=== PATIENT | female | born 1970 | race Caucasian/White ===

== ENCOUNTER → 2021-03-11 | Outpatient (CLI) | payer OTHER ==
[~2021-03-11] MED LIST: DICLOFENAC; DULO30 PO; OXYACE5T PO
[2021-03-11 12:57] LABS: BASOPHILS ABSOLUTE AUTO 0.04 K/mm3 (0.00-0.23); BASOPHILS PERCENT AUTO 1 % (0-2); EOSINOPHILS PERCENT AUTO 2 % (0-6); Hematocrit 44.3 % (33.0-51.0); Hemoglobin 14.1 g/dL (11.5-16.0); IMMATURE GRAN ABSOLUTE AUTO 0.02 K/mm3 (0.00-0.10); IMMATURE GRAN PERCENT AUTO 0 % (0-1); LYMPHOCYTES ABSOLUTE AUTO 3.36 K/mm3 (0.84-5.20); LYMPHOCYTES PERCENT AUTO 38 % (21-46); MONOCYTES ABSOLUTE AUTO 0.54 K/mm3 (0.16-1.47); MONOCYTES PERCENT AUTO 6 % (4-13); Mean Corpuscular HGB 27.7 pg (26.0-34.0); Mean Corpuscular HGB Conc 31.8 g/dL (31.5-36.5); Mean Corpuscular Volume 87 fL (80-100); Mean Platelet Volume 11.6 fL (9.1-12.4); NEUTROPHILS ABSOLUTE AUTO 4.64 K/mm3 (1.96-9.15); NEUTROPHILS PERCENT AUTO 53 % (41-73); Platelet Count 319 K/mm3 (150-400); RDW Coefficient Variation 14.6 % (11.7-14.2); RDW Standard Deviation 46.8 fL (35.1-46.3); Red Blood Cell Count 5.09 M/mm3 (3.80-5.20)
[2021-03-11 13:12] LABS: Alanine Aminotransfer (ALT/SGP 35 U/L (12-78); Albumin, Blood 3.8 g/dL (3.4-5.0); Albumin/Globulin Ratio 0.9 (0.8-1.8); Alk Phos 97 U/L (50-136); Anion Gap 4 mmol/L (6-16); Aspartate Aminotrans (AST/SGOT 20 U/L (12-37); Bilirubin, Total 0.2 mg/dL (0.1-1.0); Blood Urea Nitrogen 21 mg/dL (8-24); Bun/Creatinine Ratio 25.1 (12.0-20.0); CO2, Blood 26 mmol/L (21-32); Calcium, Blood 9.1 mg/dL (8.5-10.1); Chloride, Blood 107 mmol/L (98-108); Creatinine, Blood 0.84 mg/dL (0.40-1.00); Globulin, Blood 4.2 g/dL (2.2-4.0); Glomerular Filtration Rate >60 (60-); Glucose, Blood 114 mg/dL (70-99); Potassium, Blood 3.8 mmol/L (3.5-5.5); Sodium, Blood 137 mmol/L (136-145)
== END ==
LOC: LAB SHORT 11:55
PROVIDERS: Family Medicine
DX: J45.20 Mild intermittent asthma, uncomplicated (principal)
CPT/HCPCS: 80053; 84443; 85025; 85379

== ENCOUNTER 2021-09-07 19:19 | Emergency (ER) | payer OTHER ==
[~2021-09-07] VITALS: Ht 157.5 cm; Wt 81.7 kg
[2021-09-07] MEDS ORDERED: IBUP600 PO (22:06)
== END 2021-09-08 00:03 | disposition home or self-care (01) ==
LOC: ER 19:19
DX: T21.02XA Burn of unspecified degree of abdominal wall, initial encounter (principal); T20.00XA Burn of unspecified degree of head, face, and neck, unspecified site, initial encounter; T22.00XA Burn of unspecified degree of shoulder and upper limb, except wrist and hand, unspecified site, initial encounter; I10 Essential (primary) hypertension; M19.90 Unspecified osteoarthritis, unspecified site; F32.9 Major depressive disorder, single episode, unspecified; Z88.0 Allergy status to penicillin; Z88.2 Allergy status to sulfonamides; Z88.8 Allergy status to other drugs, medicaments and biological substances; Z79.899 Other long term (current) drug therapy; V49.9XXA Car occupant (driver) (passenger) injured in unspecified traffic accident, initial encounter
CPT/HCPCS: 74176; 96374; 96375; 99284-25; J1885; J2270; J2405

== ENCOUNTER → 2022-04-18 | Outpatient (CLI) | payer OTHER ==
[~2022-04-18] MED LIST changes: +IBUP600 PO
== END | disposition home or self-care (01) ==
LOC: LAB SHORT 11:08 → PLD 11:08
DX: L57.0 Actinic keratosis (principal)
CPT/HCPCS: 88305

== ENCOUNTER 2023-12-11 09:24 | Day surgery (SDC) | payer BC ==
[~2023-12-11] VITALS: Ht 157.5 cm; Wt 90.5 kg
[2023-12-11] MEDS ORDERED: CELE200 (10:07)
[2023-12-11] MEDS ORDERED: AMLO5 (10:08)
[2023-12-11] MEDS ORDERED: OMEP20ER (10:08)
[2023-12-11] MEDS ORDERED: ASTEPRO AL205.5 MCG/ (10:09)
[2023-12-11] MEDS ORDERED: RIZATRIPTAN10 MG (10:09)
[2023-12-11] MEDS ORDERED: TRAM50 (10:09)
[2023-12-11] MEDS ORDERED: FLUTICASONE-SA1 EAC1 (10:10)
[2023-12-11] MEDS ORDERED: XYZAL5 MG (10:10)
[2023-12-11] MEDS ORDERED: VITAMIN B12500 MCG (10:11)
[2023-12-11] MEDS ORDERED: VITAMIN D5000 UNIT (10:11)
[2023-12-11] MEDS ORDERED: ZINC15 (10:11)
[2023-12-11] MEDS ORDERED: [UNRECOGNIZED DRUG - CODE] (10:12)
[2023-12-11] MEDS ORDERED: MAGNESIUM MALATE (10:12)
[2023-12-11] MEDS ORDERED: Colace100 MG (10:13)
[2023-12-11 12:44] VITALS: BP 151/96
== END 2023-12-11 12:45 | disposition home or self-care (01) ==
LOC: ORSCSDS 09:24
PROVIDERS: Internal Medicine Gastroenterology
PROC: 0DB78ZX Excision of Stomach, Pylorus, Via Natural or Artificial Opening Endoscopic, Diagnostic (ICD-10-PCS; principal; 2023-12-11 11:00)
PROC: 0DBL8ZX Excision of Transverse Colon, Via Natural or Artificial Opening Endoscopic, Diagnostic (ICD-10-PCS; principal; 2023-12-11 11:00)
PROC: 0DB98ZX Excision of Duodenum, Via Natural or Artificial Opening Endoscopic, Diagnostic (ICD-10-PCS; principal; 2023-12-11 11:00)
PROC: 0D757ZZ Dilation of Esophagus, Via Natural or Artificial Opening (ICD-10-PCS; principal; 2023-12-11 11:00)
PROC: 0DB58ZX Excision of Esophagus, Via Natural or Artificial Opening Endoscopic, Diagnostic (ICD-10-PCS; principal; 2023-12-11 11:00)
PROC: 0DBN8ZX Excision of Sigmoid Colon, Via Natural or Artificial Opening Endoscopic, Diagnostic (ICD-10-PCS; principal; 2023-12-11 11:00)
DX: R13.10 Dysphagia, unspecified (principal); K21.9 Gastro-esophageal reflux disease without esophagitis; Z12.11 Encounter for screening for malignant neoplasm of colon; D12.5 Benign neoplasm of sigmoid colon; K63.5 Polyp of colon; D12.3 Benign neoplasm of transverse colon; I10 Essential (primary) hypertension; G47.33 Obstructive sleep apnea (adult) (pediatric); M79.7 Fibromyalgia; Z79.899 Other long term (current) drug therapy; Z68.36 Body mass index [BMI] 36.0-36.9, adult
CPT/HCPCS: 88305; 88342; J2001; J2704; J7120

== ENCOUNTER 2025-10-08 07:37 | Day surgery (SDC) | payer OTHER ==
[~2025-10-08] VITALS: Ht 157.5 cm; Wt 94.5 kg
[~2025-10-08 07:37] MED LIST changes: +AMLO5; +ASTEPRO AL205.5 MCG/; +Bupivacaine 0.5% W/EPI 1:200000 SDV 30 ML Vial ONE; +CELE200; +Colace100 MG; +FLUTICASONE-SA1 EAC1; +MAGNESIUM MALATE; +OMEP20ER; +RIZATRIPTAN10 MG; +TRAM50; +VITAMIN B12500 MCG; +VITAMIN D5000 UNIT; +XYZAL5 MG; +ZINC15; +[UNRECOGNIZED DRUG - CODE]
[2025-10-08] MEDS ORDERED: OMEP20ER PO (08:33)
[2025-10-08] MEDS ORDERED: Cymbalta60 MG PO (08:33)
[2025-10-08] MEDS ORDERED: AMIT25 PO (08:34)
[2025-10-08] MEDS ORDERED: TRAM50 PO (08:34)
[2025-10-08] MEDS ORDERED: RIZATRIPTAN10 MG SL (08:34)
[2025-10-08] MEDS ORDERED: ATOR10 PO (08:34)
[2025-10-08] MEDS ORDERED: XYZAL5 MG PO (08:35)
[2025-10-08] MEDS ORDERED: METF500C PO (08:35)
[2025-10-08] MEDS ORDERED: VITAMIN D5000 UNIT PO (08:37)
[2025-10-08] MEDS ORDERED: FLUT.05NI (08:37)
[2025-10-08] MEDS ORDERED: CeFAZolin Sodium 2,000 MG VIAL ONE (08:50)
[2025-10-08] MEDS ORDERED: Midazolam HCl 1MG / ML 2ML Vial ONE (08:52)
[2025-10-08] MEDS ORDERED: Ropivacaine 0.5% HCL/PF 5 MG/ML 30ML Vial ONE (08:53)
[2025-10-08] MEDS ORDERED: Rocuronium Bromide 10 MG/ML 5ML Injection IV ONE (09:18)
[2025-10-08] MEDS ORDERED: FentaNYL Citrate 50 MCG/ML 2 ML Injection ONE (09:18)
--- NOTE | 2025-10-08 09:26 | NUR ---
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 PT REPORTS HX OF ITCHING 30 YRS AGO PATIENT IS CURRENTLY ON KEFLEX FOR A SKIN INFECTION/RASH ON LEGS AND ARM SINCE SATURDAY AND HAS BEEN DOING WELL ON THIS. ALSO REPORTS THAT SHE WAS GIVEN SOME TYPE OF CEPHALOSPORIN DURING HER HIP SURGERY AND DID WELL ON THAT. PER DR LENNON, IT WAS OKAY TO PROCEED WITH ANCEF 2GMS.
[2025-10-08] MEDS ORDERED: Phenylephrine HCl 100 MCG/ML-NS 10MLSYR (1MG/10ML) ONE ×2 (09:52→10:28)
[2025-10-08] MEDS ORDERED: Ketorolac Tromethamine 30mg Vial ONE (12:30)
--- NOTE | 2025-10-08 12:43 | NUR ---
10/08/25 1243 Vinnie Villatoro TORADOL 30MG IV GIVEN AT 1240 FOR PAIN AT 5/10 TO RIGHT FOOT
[2025-10-08 13:13] VITALS: BP 146/82
== END 2025-10-08 13:10 | disposition home or self-care (01) ==
LOC: ORSCSDS 07:37
PROVIDERS: Podiatrist Foot & Ankle Surgery
PROC: 0LQN0ZZ Repair Right Lower Leg Tendon, Open Approach (ICD-10-PCS; principal; 2025-10-08 09:15)
PROC: 0QBL0ZZ Excision of Right Tarsal, Open Approach (ICD-10-PCS; principal; 2025-10-08 09:15)
PROC: 0LSN0ZZ Reposition Right Lower Leg Tendon, Open Approach (ICD-10-PCS; principal; 2025-10-08 09:15)
DX: M76.61 Achilles tendinitis, right leg (principal); I10 Essential (primary) hypertension; F32.A Depression, unspecified; K21.9 Gastro-esophageal reflux disease without esophagitis; E78.00 Pure hypercholesterolemia, unspecified; G47.33 Obstructive sleep apnea (adult) (pediatric); Z79.84 Long term (current) use of oral hypoglycemic drugs; Z79.899 Other long term (current) drug therapy
CPT/HCPCS: 82947; A6253; C1713; J0690; J1885; J2250; J2371; J2704; J2795; J3010; J7120